=== PATIENT | male | born 1985 | race American Indian/Alaskan Native ===

== ENCOUNTER 2019-12-11 08:04 | Observation (INO) | payer BC, OTHER ==
[2019-12-11] MEDS ORDERED: [UNRECOGNIZED DRUG - OTHER] IM ONE (08:36)
[2019-12-11] MEDS ORDERED: Labetalol 100 MG/20 ML MDV IVPUSH ONE (08:38)
--- NOTE | 2019-12-11 08:41 | EDM.PDOC ---
ED HPI GENERAL MEDICAL PROBLEM - General Chief Complaint: Laceration Stated Complaint: INJURED FINGER Time Seen by Provider: 12/11/19 08:35 Source of Information: Reports: Patient History Limitations: Reports: No Limitations - History of Present Illness Onset: Today Location: Reports: Upper Extremity, Right (right middle finger on the pulp.) Associated Symptoms: Reports: Other (on admission to the ED his BP was extremely high. He does not have a history of hypertension but his father did and at the age of 62.) Right Middle Finger Pain Score (Numeric/FACES): 3 - Related Data Allergies Allergy/AdvReac Type Severity Reaction Status Date / Time No Known Allergies Allergy Verified 12/11/19 08:17 Home Meds: Home Meds . [No Known Home Meds] 10/03/18 [History] Past Medical History - Past Health History Medical/Surgical History: Denies Medical/Surgical History Social & Family History - Tobacco Use Smoking Status *Q: Never Smoker Second Hand Smoke Exposure: No - Caffeine Use Caffeine Use: Reports: Coffee, Energy Drinks, Tea - Recreational Drug Use Recreational Drug Use: No ED ROS GENERAL - Review of Systems Review Of Systems: See Below Constitutional: Reports: No Symptoms HEENT: Reports: No Symptoms Respiratory: Reports: No Symptoms Cardiovascular: Reports: No Symptoms Endocrine: Reports: No Symptoms GI/Abdominal: Reports: No Symptoms : Reports: No Symptoms Musculoskeletal: Reports: Other (other than laceration of the right middle finger no other problems.) Skin: Reports: Other (laceration of right middle finger with a razor blade this morning.) Neurological: Reports: No Symptoms Psychiatric: Reports: No Symptoms Hematologic/Lymphatic: Reports: No Symptoms ED EXAM, SKIN/RASH Exam: See Below Exam Limited By: No Limitations General Appearance: Alert, WD/WN, No Apparent Distress Eye Exam: Bilateral Eye: EOMI, Normal Inspection, PERRL Ears: Normal External Exam, Normal Canal, Hearing Grossly Normal, Normal TMs Nose: Normal Inspection, Normal Mucosa, No Blood Throat/Mouth: Normal Inspection, Normal Lips, Normal Teeth, Normal Gums, Normal Oropharynx, Normal Voice, No Airway Compromise Head: Atraumatic, Normocephalic Neck: Normal Inspection, Supple, Non-Tender, Full Range of Motion Respiratory/Chest: No Respiratory Distress, Lungs Clear, Normal Breath Sounds, No Accessory Muscle Use, Chest Non-Tender Cardiovascular: Normal Peripheral Pulses, Regular Rate, Rhythm, No Edema, No Gallop, No JVD, No Murmur, No Rub Peripheral Pulses: 3+: Dorsalis Pedis (L), 4+: Carotid (L), Carotid (R), Radial (L), Radial (R), Dorsalis Pedis (R) GI/Abdominal: Normal Bowel Sounds, Soft, Non-Tender, No Organomegaly, No Distention, No Abnormal Bruit, No Mass (Male) Exam: Deferred Rectal (Males) Exam: Deferred Back Exam: Normal Inspection, Full Range of Motion, NT Extremities: No Pedal Edema, Normal Capillary Refill, Other (flap laceration of the pulp of the right middle finger.) Psychiatric: Normal Affect, Normal Mood Skin: Other (laceration as noted above. The laceration is superficial and will have steri-strips applied.) Lymphatic: No Adenopathy EKG INTERPRETATION EKG Date: 12/11/19 Rhythm: NSR Blairs: LAD-Left Blairs Deviation P-Wave: Present QRS: Normal ST-T: Normal QT: Normal EKG Interpretation Comments: ECG reveals early left ventricular hypertrophy. Course - Vital Signs Text/Narrative:: I discussed this case with Dr. White at 11:06AM. I also discussed all of the patient lab, x-rays. I discussed with him being admitted to OBS under Dr. White and he agrees with the admission plan. Last Recorded V/S: Last Vital Signs Temp 97.6 F 12/11/19 09:33 Pulse 68 12/11/19 09:59 Resp 17 12/11/19 09:33 BP 195/127 H 12/11/19 09:59 Pulse Ox 94 L 12/11/19 09:33 - Orders/Labs/Meds Orders: Active Orders 24 hr Category Date Time Status EKG 12 Lead [EKG Documentation Completion] [RC] STAT Care 12/11/19 09:16 Active Vaccines to be Administered [RC] PER UNIT ROUTINE Care 12/11/19 08:37 Active Vaccines to be Administered [RC] PER UNIT ROUTINE Care 12/11/19 09:55 Active Steri Strips Application [OM.PC] Stat Oth 12/11/19 09:19 Ordered Labs: Laboratory Tests 12/11/19 12/11/19 12/11/19 Range/Units 08:52 08:52 08:52 WBC 6.36 (4.0-11.0) K/uL RBC 5.22 (4.50-5.90) M/uL Hgb 16.4 (13.0-17.0) g/dL Hct 46.0 (38.0-50.0) % MCV 88.1 (80.0-98.0) fL MCH 31.4 (27.0-32.0) pg MCHC 35.7 (31.0-37.0) g/dL RDW Std Deviation 41.8 (28.0-62.0) fl RDW Coeff of Lili 13 (11.0-15.0) % Plt Count 247 (150-400) K/uL MPV 10.30 (7.40-12.00) fL Neut % (Auto) 61.9 (48.0-80.0) % Lymph % (Auto) 26.6 (16.0-40.0) % [place] % (Auto) 8.6 (0.0-15.0) % Eos % (Auto) 2.7 (0.0-7.0) % Baso % (Auto) 0.2 (0.0-1.5) % Neut # (Auto) 3.9 (1.4-5.7) K/uL Lymph # (Auto) 1.7 (0.6-2.4) K/uL Merrick # (Auto) 0.6 (0.0-0.8) K/uL Eos # (Auto) 0.2 (0.0-0.7) K/uL Baso # (Auto) 0.0 (0.0-0.1) K/uL Nucleated RBC % 0.0 /100WBC Nucleated RBCs # 0 K/uL Sodium 142 (136-148) mmol/L Potassium 3.9 (3.5-5.1) mmol/L Chloride 104 (98-107) mmol/L Carbon Dioxide 29.2 (21.0-32.0) mmol/L BUN 14 (7.0-18.0) mg/dL Creatinine 1.1 (0.8-1.3) mg/dL Est Cr Clr Drug Dosing 104.84 mL/min Estimated GFR (MDRD) > 60.0 ml/min Glucose 119 H (74-106) mg/dL Calcium 9.1 (8.5-10.1) mg/dL Total Bilirubin 0.7 (0.2-1.0) mg/dL AST 28 (15-37) IU/L ALT 41 (14-63) IU/L Alkaline Phosphatase 57 (46-116) U/L Troponin I < 0.050 (0.000-0.056) ng/mL Total Protein 7.8 (6.4-8.2) g/dL Albumin 3.8 (3.4-5.0) g/dL Globulin 4.0 (2.6-4.0) g/dL Albumin/Globulin Ratio 0.9 (0.9-1.6) Meds: Medications Discontinued Medications Generic Name Dose Route Start Last Admin Trade Name Freq PRN Reason Stop Dose Admin Diphtheria/Ac Pert/Tetanus/Polio 0.5 ml 12/11/19 08:36 12/11/19 09:55 Kinrix IM 12/11/19 08:37 Not Given .ONCE ONE Diphtheria/Tetanus/Acell Pertussis 0.5 ml 12/11/19 09:55 12/11/19 09:55 Adacel IM 12/11/19 09:56 0.5 ml .ONCE ONE Administration Hydralazine HCl 10 mg 12/11/19 10:17 12/11/19 10:27 Apresoline IVPUSH 12/11/19 10:18 10 mg ONETIME ONE Administration Labetalol HCl 20 mg 12/11/19 08:38 12/11/19 09:06 Normodyne IVPUSH 12/11/19 08:39 20 mg ONETIME ONE Administration Protocol Departure - Departure Time of Disposition: 11:14 Disposition: Refer to Observation Condition: Good Clinical Impression: Malignant hypertension Laceration of finger, middle Qualifiers: Encounter type: initial encounter Damage to nail status: without damage Foreign body presence: without foreign body Laterality: right Qualified Code(s) : S61.212A - Laceration without foreign body of right middle finger without damage to nail, initial encounter - Discharge Information *PRESCRIPTION DRUG MONITORING PROGRAM REVIEWED*: Yes *COPY OF PRESCRIPTION DRUG MONITORING REPORT IN PATIENT LE: Yes Sepsis Event Note - Evaluation Sepsis Screening Result: No Definite Risk - Focused Exam Vital Signs: Vital Signs Temp Pulse Resp BP Pulse Ox 12/11/19 09:59 68 195/127 H 12/11/19 09:41 140/86 12/11/19 09:33 97.6 F 71 17 183/114 H 94 L 12/11/19 09:11 189/118 H 12/11/19 08:56 193/127 H 12/11/19 08:37 195/128 H 12/11/19 08:18 97.4 F 82 17 230/160 H 96 Date Exam was Performed: 12/11/19 Time Exam was Performed: 11:07 - My Orders Last 24 Hours: My Active Orders 12/11/19 08:37 Vaccines to be Administered [RC] PER UNIT ROUTINE 12/11/19 09:16 EKG 12 Lead [EKG Documentation Completion] [RC] STAT 12/11/19 09:19 Steri Strips Application [OM.PC] Stat 12/11/19 09:55 Vaccines to be Administered [RC] PER UNIT ROUTINE - Assessment/Plan Last 24 Hours: My Active Orders 12/11/19 08:37 Vaccines to be Administered [RC] PER UNIT ROUTINE 12/11/19 09:16 EKG 12 Lead [EKG Documentation Completion] [RC] STAT 12/11/19 09:19 Steri Strips Application [OM.PC] Stat 12/11/19 09:55 Vaccines to be Administered [RC] PER UNIT ROUTINE
[2019-12-11 09:22] LABS: BLOOD UREA NITROGEN,BUN 14 mg/dL (7.0-18.0); CARBON DIOXIDE,CO2 29.2 mmol/L (21.0-32.0); CHLORIDE,CL 104 mmol/L (98-107); GLUCOSE RANDOM 119 mg/dL (74-106); POTASSIUM,K 3.9 mmol/L (3.5-5.1); SODIUM,NA 142 mmol/L (136-148)
[2019-12-11] MEDS ORDERED: Diphtheria,Pertussis(Acell),Tetanus Vaccine 0.5 ML Syringe IM ONE (09:55)
--- NOTE | 2019-12-11 09:59 | CR ---
Chest: 2 views of the chest were obtained. Comparison: No prior chest imaging. Heart size and mediastinum are normal. Lungs are clear with no acute parenchymal change. Bony structures are grossly intact. Impression: 1. Nothing acute is appreciated on 2 view chest x-ray. Diagnostic code #1 This report was dictated in [place] Standard Time
[2019-12-11] MEDS ORDERED: hydrALAZINE 20 MG/ML SDV IVPUSH ONE ×2 (10:17→18:25)
--- NOTE | 2019-12-11 11:56 | PCM.HP.2 ---
H&P History of Present Illness - General Date of Service: 12/11/19 Admit Problem/Dx: Admission Diagnosis/Problem Admission Diagnosis/Problem Hypertension - History of Present Illness Initial Comments - Free Text/Narative: 33 yo male who presented to the ED after cutting his finger with a razor. He was treated with steriostrips and tetanus shot. He was noted to have blood pressures inthe 220s-180s systolic. He denies any chest pain, shortness of breath, headache or blurred vision. He reports that his finger does not hurt that much. ED provider gave IV hydralazine and labetolol and referred the patient for observation. Right Middle Finger Pain Score (Numeric/FACES): 3 - Related Data Allergies/Adverse Reactions: Allergies Allergy/AdvReac Type Severity Reaction Status Date / Time No Known Allergies Allergy Verified 12/12/19 09:04 Home Medications: Home Meds Lisinopril [Zestril] 40 mg PO DAILY 14 Days #14 tablet 12/12/19 [Rx] Past Medical History - Past Health History Medical/Surgical History: Denies Medical/Surgical History Social & Family History - Tobacco Use Smoking Status *Q: Never Smoker Second Hand Smoke Exposure: No - Caffeine Use Caffeine Use: Reports: Coffee, Energy Drinks, Tea - Recreational Drug Use Recreational Drug Use: No H&P Review of Systems - Review of Systems: Review Of Systems: See Below Exam - Exam Exam: See Below - Vital Signs Vital Signs: Last Vital Signs Temp 36.4 C 12/11/19 09:33 Pulse 72 12/11/19 11:11 Resp 23 H 12/11/19 11:11 BP 193/123 H 12/11/19 11:11 Pulse Ox 96 12/11/19 11:11 Weight: 127.006 kg - Exam General: Alert, Oriented HEENT: Mucosa Moist & [place] Lungs: Clear to Auscultation, Normal Respiratory Effort Cardiovascular: Regular Rate, Regular Rhythm GI/Abdominal Exam: Normal Bowel Sounds, Soft, Non-Tender Extremities: Non-Tender, No Pedal Edema Skin: Warm, Dry, Intact, Other (laceration of right second finger) Neurological: Cranial Nerves Intact, Reflexes Equal Bilateral, Strength Equal Bilateral, Normal Gait - Patient Data Lab Results Last 24 hrs: Laboratory Results - last 24 hr 02/04/20 02/04/20 02/04/20 Range/Units 08:52 08:52 08:52 WBC 6.36 (4.0-11.0) K/uL RBC 5.22 (4.50-5.90) M/uL Hgb 16.4 (13.0-17.0) g/dL Hct 46.0 (38.0-50.0) % MCV 88.1 (80.0-98.0) fL MCH 31.4 (27.0-32.0) pg MCHC 35.7 (31.0-37.0) g/dL RDW Std Deviation 41.8 (28.0-62.0) fl RDW Coeff of Lili 13 (11.0-15.0) % Plt Count 247 (150-400) K/uL MPV 10.30 (7.40-12.00) fL Neut % (Auto) 61.9 (48.0-80.0) % Lymph % (Auto) 26.6 (16.0-40.0) % [place] % (Auto) 8.6 (0.0-15.0) % Eos % (Auto) 2.7 (0.0-7.0) % Baso % (Auto) 0.2 (0.0-1.5) % Neut # (Auto) 3.9 (1.4-5.7) K/uL Lymph # (Auto) 1.7 (0.6-2.4) K/uL [place]ady # (Auto) 0.6 (0.0-0.8) K/uL Eos # (Auto) 0.2 (0.0-0.7) K/uL Baso # (Auto) 0.0 (0.0-0.1) K/uL Nucleated RBC % 0.0 /100WBC Nucleated RBCs # 0 K/uL Sodium 142 (136-148) mmol/L Potassium 3.9 (3.5-5.1) mmol/L Chloride 104 (98-107) mmol/L Carbon Dioxide 29.2 (21.0-32.0) mmol/L BUN 14 (7.0-18.0) mg/dL Creatinine 1.1 (0.8-1.3) mg/dL Est Cr Clr Drug Dosing 104.84 mL/min Estimated GFR (MDRD) > 60.0 ml/min Glucose 119 H (74-106) mg/dL Calcium 9.1 (8.5-10.1) mg/dL Total Bilirubin 0.7 (0.2-1.0) mg/dL AST 28 (15-37) IU/L ALT 41 (14-63) IU/L Alkaline Phosphatase 57 (46-116) U/L Troponin I < 0.050 (0.000-0.056) ng/mL Total Protein 7.8 (6.4-8.2) g/dL Albumin 3.8 (3.4-5.0) g/dL Globulin 4.0 (2.6-4.0) g/dL Albumin/Globulin Ratio 0.9 (0.9-1.6) Result Diagrams: 12/11/19 08:52 12/11/19 08:52 Sepsis Event Note - Evaluation Sepsis Screening Result: No Definite Risk - Focused Exam Vital Signs: Vital Signs Temp Pulse Resp BP Pulse Ox 12/11/19 11:11 72 23 H 193/123 H 96 12/11/19 10:57 73 159/70 H 12/11/19 10:41 74 199/121 H 12/11/19 09:59 68 195/127 H 12/11/19 09:41 140/86 12/11/19 09:33 36.4 C 71 17 183/114 H 94 L 12/11/19 09:11 189/118 H 12/11/19 08:56 193/127 H 12/11/19 08:37 195/128 H 12/11/19 08:18 36.3 C 82 17 230/160 H 96 Date Exam was Performed: 12/12/19 Time Exam was Performed: 18:03 Problem List Initiated/Reviewed/Updated: Yes Orders Last 24hrs: Active Orders 24 hr Category Date Time Status Admission Status [Patient Status] [ADT] Stat ADT 12/11/19 11:17 Active Antiembolic Devices [RC] PER UNIT ROUTINE Care 12/11/19 11:52 Ordered EKG 12 Lead [EKG Documentation Completion] [RC] STAT Care 12/11/19 09:16 Active Oxygen Therapy [RC] PRN Care 12/11/19 11:51 Ordered Up ad [place] [RC] ASDIRECTED Care 12/11/19 11:51 Ordered VTE/DVT Education [RC] PER UNIT ROUTINE Care 12/11/19 11:51 Ordered Vaccines to be Administered [RC] PER UNIT ROUTINE Care 12/11/19 08:37 Active Vaccines to be Administered [RC] PER UNIT ROUTINE Care 12/11/19 09:55 Active Vital Signs [RC] Q4H Care 12/11/19 11:51 Ordered Regular Diet [DIET] Diet 12/11/19 Breakfast Ordered lisinopriL [Prinivil] Med 12/11/19 12:00 Ordered 20 mg PO DAILY Sequential Compression Device [OM.PC] Per Unit Routine Oth 12/11/19 11:51 Ordered Steri Strips Application [OM.PC] Stat Oth 12/11/19 09:19 Ordered Resuscitation Status Routine Resus Stat 12/11/19 11:51 Ordered Medication Orders Lisinopril (Prinivil) 20 mg PO DAILY [facility] Assessment/Plan Comment:: 33 yo male with finger laceration who is being referred for observation due to elevated blood pressures. We will start Lisinopril orally and continue to monitor. - Mortality Measure Prognosis:: Good
[2019-12-11] MEDS: Lisinopril 10 MG Tab PO SCH (12:35)
[2019-12-11] MEDS ORDERED: hydrALAZINE 20 MG/ML SDV IVPUSH PRN (19:05)
--- NOTE | 2019-12-12 08:51 | PCM.DCSUM1 ---
Discharge Summary - Hospital Course HPI Initial Comments: Admission Date: 12/11/19 Discharge Date: 12/12/19 Admission Diagnosis: 1. Hypertension 2. Finger laceration Discharge Diagnosis: 1. Hypertension- improved 2. Finger laceration Procedures: None Consults: None Hospital Course: The patient is a 33 year old male with no significant past medical history who presented to the ER after slicing finger with razor. In the ER treated with steri strips and Tetanus was updated. In the ER he was fond to have elevated blood pressure of 230/160. Workup ( CBC, CMP, trop, EKG, CXR) found no significant abnormalities. Given Hydralazine and Labetalol in ER with some improvement. Admitted to the medical floor, started on 20 mg of Lisinopril , remained asymptomatic and blood pressure improved. By day of discharge, patient felt fine and wanted to go home. Disposition: Home Discharge Condition: vitals stable, tolerating oral diet, ambulating without difficulty, symptom improvement Discharge Instructions: regular diet as tolerated, activity as tolerated, take medications as prescribed. Symptoms to report to physician include fever/chills , chest pain, shortness of breath, abdominal pain, erythema, drainage/discharge , or not improving as expected. Check BP daily, keep log, bring log to follow up appt. Discharge Medications: Lisinopril 40 mg po daily Follow-up: Dr. Ulloa 12/13/19 - Discharge Data Discharge Date: 12/12/19 Discharge Disposition: Home, Self-Care 01 Condition: Fair - Referral to Home Health Primary Care Physician: PCP None - Discharge Plan *PRESCRIPTION DRUG MONITORING PROGRAM REVIEWED*: Yes *COPY OF PRESCRIPTION DRUG MONITORING REPORT IN PATIENT LE: Yes Prescriptions/Med Rec: Lisinopril [Zestril] 40 mg PO DAILY 14 Days #14 tablet Home Medications: Home Meds Lisinopril [Zestril] 40 mg PO DAILY 14 Days #14 tablet 12/12/19 [Rx] Patient Handouts: Hypertension, [id number], Lisinopril tablets [facility] Jcarlos Ulloa MD [Ordering Only Provider] - 12/13/19 2:30 pm - Discharge Summary/Plan Comment DC Time >30 min.: No - Patient Data Vitals - Most Recent: Last Vital Signs Temp 97.3 F 12/12/19 03:38 Pulse 79 12/12/19 03:38 Resp 16 12/12/19 03:38 BP 146/89 H 12/12/19 03:38 Pulse Ox 95 12/12/19 03:38 Weight - Most Recent: 128.911 kg I&O - Last 24 hours: Intake & Output 12/11/19 12/12/19 12/12/19 22:59 06:59 14:59 Intake Total 600 1650 Output Total 500 1300 Balance 100 350 Lab Results - Last 24 hrs: Laboratory Results - last 24 hr 12/11/19 12/11/19 12/11/19 Range/Units 08:52 08:52 08:52 WBC 6.36 (4.0-11.0) K/uL RBC 5.22 (4.50-5.90) M/uL Hgb 16.4 (13.0-17.0) g/dL Hct 46.0 (38.0-50.0) % MCV 88.1 (80.0-98.0) fL MCH 31.4 (27.0-32.0) pg MCHC 35.7 (31.0-37.0) g/dL RDW Std Deviation 41.8 (28.0-62.0) fl RDW Coeff of Lili 13 (11.0-15.0) % Plt Count 247 (150-400) K/uL MPV 10.30 (7.40-12.00) fL Neut % (Auto) 61.9 (48.0-80.0) % Lymph % (Auto) 26.6 (16.0-40.0) % [place] % (Auto) 8.6 (0.0-15.0) % Eos % (Auto) 2.7 (0.0-7.0) % Baso % (Auto) 0.2 (0.0-1.5) % Neut # (Auto) 3.9 (1.4-5.7) K/uL Lymph # (Auto) 1.7 (0.6-2.4) K/uL [place] # (Auto) 0.6 (0.0-0.8) K/uL Eos # (Auto) 0.2 (0.0-0.7) K/uL Baso # (Auto) 0.0 (0.0-0.1) K/uL Nucleated RBC % 0.0 /100WBC Nucleated RBCs # 0 K/uL Sodium 142 (136-148) mmol/L Potassium 3.9 (3.5-5.1) mmol/L Chloride 104 (98-107) mmol/L Carbon Dioxide 29.2 (21.0-32.0) mmol/L BUN 14 (7.0-18.0) mg/dL Creatinine 1.1 (0.8-1.3) mg/dL Est Cr Clr Drug Dosing 104.84 mL/min Estimated GFR (MDRD) > 60.0 ml/min Glucose 119 H (74-106) mg/dL Calcium 9.1 (8.5-10.1) mg/dL Total Bilirubin 0.7 (0.2-1.0) mg/dL AST 28 (15-37) IU/L ALT 41 (14-63) IU/L Alkaline Phosphatase 57 (46-116) U/L Troponin I < 0.050 (0.000-0.056) ng/mL Total Protein 7.8 (6.4-8.2) g/dL Albumin 3.8 (3.4-5.0) g/dL Globulin 4.0 (2.6-4.0) g/dL Albumin/Globulin Ratio 0.9 (0.9-1.6) Med Orders - Current: Current Medications Hydralazine HCl (Apresoline) 10 mg IVPUSH Q4H PRN PRN Reason: Hypertension Last Admin: 12/11/19 22:40 Dose: 10 mg Lisinopril (Prinivil) 20 mg PO DAILY DENISE Last Admin: 12/11/19 12:35 Dose: 20 mg Discontinued Medications Diphtheria/Ac Pert/Tetanus/Polio (Kinrix) 0.5 ml IM .ONCE ONE Stop: 12/11/19 08:37 Last Admin: 12/11/19 09:55 Dose: Not Given Diphtheria/Tetanus/Acell Pertussis (Adacel) 0.5 ml IM .ONCE ONE Stop: 12/11/19 09:56 Last Admin: 12/11/19 09:55 Dose: 0.5 ml Hydralazine HCl (Apresoline) 10 mg IVPUSH ONETIME ONE Stop: 12/11/19 10:18 Last Admin: 12/11/19 10:27 Dose: 10 mg Hydralazine HCl (Apresoline) 20 mg IVPUSH ONETIME ONE Stop: 12/11/19 18:26 Last Admin: 12/11/19 18:37 Dose: 20 mg Labetalol HCl (Normodyne) 20 mg IVPUSH ONETIME ONE; Protocol Stop: 12/11/19 08:39 Last Admin: 12/11/19 09:06 Dose: 20 mg
[2019-12-12] MEDS: Lisinopril 10 MG Tab PO SCH (09:05)
== END 2019-12-12 13:30 | disposition home or self-care (01) ==
LOC: MW.ED 08:04 → MW.MS 11:17
PROVIDERS: ADMIT Internal Medicine; ATTEND Internal Medicine
DX: I10 Essential (primary) hypertension (principal); S61.212A Laceration without foreign body of right middle finger without damage to nail, initial encounter; Z23 Encounter for immunization; W26.8XXA Contact with other sharp object(s), not elsewhere classified, initial encounter
CPT/HCPCS: 36415; 71046; 80053; 84484; 85025; 90715; 93005; A9270; J0360; J3490; 90471; 96374; 96375; 99284-25

== ENCOUNTER 2019-12-14 20:19 | Emergency (ER) | payer BC ==
--- NOTE | 2019-12-14 20:56 | EDM.PDOC ---
ED HPI GENERAL MEDICAL PROBLEM - General Chief Complaint: Cardiovascular Problem Stated Complaint: HIGH BLOOD PRESURE Time Seen by Provider: 12/14/19 20:21 - History of Present Illness INITIAL COMMENTS - FREE TEXT/NARRATIVE: HPI 33-year-old male with recently diagnosed (and asymptomatic) hypertension presents for repeat evaluation of an elevated blood pressure. Patient was seen on 12/11/23 avulsion laceration on his right index finger tip pad, this is been healing well without interval complications. The patient had screening labs performed in the ED and admitted for observation status for further management. Patient followed up yesterday with his PCP who added an additional medication. 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 * Cardiac - [patient denies chest pain, palpitations, jaw pain, nausea, and shortness of breath at rest or on exertion. * Medications - lisinopril 40 mg q.d., HCTZ 50 mg q.h.s. ED evaluation on 12/11 as well as discharge summary on 12/12/19 reviewed, troponin negative, renal function with acceptable limits, ECG with LVH but reportedly without ischemic changes. M/S/F/SocHx notable for: please see HPI; remainder reviewed with patient and in chart. ROS: Negative constitutional, eye, cardiovascular, pulmonary, GI, , MSK, skin , neurologic, psychiatric, endocrine unless noted in the HPI. Exam HR 106, RR 18, BP 227/157, T 36.9C, SaO2 96% on room air. Gen: Pleasant, non-toxic appearing, resting comfortably. HEENT: NC, AT, PEERL, EOMI. Resp: Clear to auscultation bilaterally, normal work of breathing, no accessory muscle usage. Card: Regular rate and rhythm with no murmurs, rubs, or gallops, extremities warm and well perfused. GI: Non-tender to palpation throughout all quadrants, no focal tenderness at McBurney's point, negative George's sign, non-distended, no rebound or guarding. : deferred. MSK: No visible deformities, strength and tone without visually appreciable deficit. Skin: right index finger distal pad with a well-healing approximately 1 cm long laceration, otherwise normal color with no visible lesions. Neuro: alert and oriented 3, no facial asymmetry, no gaze preference, no slurring of speech. Pupils equal and reactive, EOMI, no facial asymmetry, no nystagmus, phonation intact, SCM 5/5 bilaterally. Cerebellar: bilateral upper extremities without dysmetria. Psych: Mood and affect appropriate. Imaging: EKG: SR one 1 bpm, no ST segment elevations or depressions, no LBBB, incomplete RBBB. MDM Previous chart, nursing note, labs, imaging, and vitals reviewed. A: 33-year-old male with recently diagnosed (and asymptomatic) hypertension presents for repeat evaluation of an elevated blood pressure. DDx: hypertension with or without end organ dysfunction (cardiac, renal, DESK OFFICER). Evaluation: patient clinically without interval change in HTN related symptomatology since his ED visit (which at that time the patient was asymptomatic), laboratory studies at that time reviewed and within acceptable limits. ECG (obtained by protocol today prior to my evaluation), without evidence of ischemia or clinically significant abnormalities. Patient remains appropriate for outpatient management, recommend PCP follow-up on Tuesday for repeat blood pressure management, return to care precautions provided, patient may need addition of a third agent and further (and nonemergent) studies with regards to his ongoing hypertension. Impression: asymptomatic hypertension. (please reference below for remainder of encounter information) Patient was notified of their elevated blood pressure and recommended to follow up with their primary care physician. As the patient is without evidence of acute end organ dysfunction no further emergent evaluation is indicated as per the 2013 ACEP clinical policy. - Related Data Allergies Allergy/AdvReac Type Severity Reaction Status Date / Time No Known Allergies Allergy Verified 12/14/19 20:27 Home Meds: Home Meds Lisinopril [Zestril] 40 mg PO DAILY 14 Days #14 tablet 12/12/19 [Rx] Sertraline [Zoloft] 100 mg PO DAILY 12/14/19 [History] hydroCHLOROthiazide [Hydrochlorothiazide] 50 mg PO BEDTIME 12/14/19 [History] Past Medical History - Past Health History Medical/Surgical History: Denies Medical/Surgical History Cardiovascular History: Reports: Hypertension Psychiatric History: Reports: Anxiety - Past Surgical History Cardiovascular Surgical History: Reports: None Social & Family History - Family History Family Medical History: Noncontributory - Tobacco Use Smoking Status *Q: Never Smoker Second Hand Smoke Exposure: No - Caffeine Use Caffeine Use: Reports: Coffee, Energy Drinks, Tea - Recreational Drug Use Recreational Drug Use: No ED ROS GENERAL - Review of Systems Review Of Systems: See Below ED EXAM, GENERAL - Physical Exam Exam: See Below Course - Vital Signs Last Recorded V/S: Last Vital Signs Temp 36.9 C 12/14/19 20:23 Pulse 96 12/14/19 20:31 Resp 18 12/14/19 20:23 BP 227/157 H 12/14/19 20:31 Pulse Ox 96 12/14/19 20:23 Departure - Departure Time of Disposition: 20:55 Disposition: Home, Self-Care 01 Clinical Impression: Hypertension Referrals: PCP,None [Primary Care Provider] - Additional Instructions: You were in seen in the [facility] Emergency Department for evaluation of high blood pressure. At the time of your evaluation your blood pressure was elevated, however this is not an emergent issue. You should follow up on Tuesday with your primary care physician for repeat measurement of your blood pressure and possible additional evaluation or addition of medications. Please read and follow all of the instructions below. High Blood Pressure (Hypertension) When you were in the emergency department you had an abnormally high blood pressure. High blood pressure can be without symptoms. However high blood pressure can lead to many medical problems including kidney disease, strokes, and heart attacks. Your blood pressure may have been elevated due to pain or the stress of being in the emergency department, however half of people with an elevated blood pressure in the emergency department have manager terminal problems with high blood pressure. Please see your primary care physician in 2-3 days for a repeat check of your blood pressure. This may help prevent many health serious problems in the future. Please return to the emergency department if you develop any of the following: chest pain, shortness of breath, new or severe headache, changes in vision or hearing, weakness, or if you are otherwise concerned about your health. Please follow up with your primary care physician as needed. When calling for follow-up care, please make the office aware that this follow-up is from your recent emergency room visit. If for any reason you are refused follow-up, please contact the [facility] Emergency Department at and asked to speak to the emergency department charge nurse. Your care today was limited to identifying and treating emergent medical problems only. Many people have subtle differences in their test results that require follow up with their outpatient physician(s) to correctly determine if this represents a normal variation or concerning abnormality with respect to your specific health. The care given to you today was limited to identifying and treating emergent medical problems - you need to request a copy of all of your medical records from today's visit and follow up with your outpatient physician(s) to review both today's visit and your overall health. If you have any new symptoms or if you are at all concerned about your health please return immediately to the emergency department. Prescriptions: If you are uninsured or have financial difficulties with filling your prescription(s), you may consider using a free pharmacy discount service such as RECCY ([employer]) or [employer] ([employer]). These services allow you to search for a medication on your phone (or computer) and obtain a coupon that usually has a significant discount from the list parsons at a pharmacy. Your physician as well as [facility] does not have a financial relationship with either of these services. You may also wish to speak with your physician to determine if lower cost prescriptions are possible. Obtaining primary care: 1. [facility] provides pediatrics (children), family medicine (children, adults, and some obstetrical care), and internal medicine (adults). Further specialty care is also available. Same day appointments are available. They may be contacted at [phone] and are open Tuesday through Tuesday 8 AM to 5 PM. The [facility] are located at [facility], [address] [place], [place] [address]. 2. [facility] offers family medicine, internal medicine, womens health, and further specialty care. [facility] may be contacted at [phone]. [facility] is located at [address] [place], [address]. 3. If you have health insurance, please also contact your insurer for a list of accepting providers under your policy, you may contact these providers for further health care. Occupational health: Work related injuries may consider following up with [facility], . Occupational health services are located at [address] [place] [id number] and are open Tuesday through Tuesday from 7: 30 am to 5:00 pm. Obstetrical and Gynecological Care: [facility], , Tuesday through Tuesday 8 AM to 5 PM. [address] [place] [address]. Eyecare: If you have an eye injury you should follow up with your car parker or with [facility], at [phone] or [phone] , they are located at [address] [place] [address]. Dental Care Fernie Chanel DDS. [address] [facility].[place], [place]. Ph. [phone] Nima Chanel DDS MS. [address] [facility] [address], [place], [place]. Ph. [phone] Andrew Hill DDS. 10 [address] [place] [address]. Ph. [phone] Ra Barkley DDS. [address] [facility] 4 [place], [place]. Ph. [phone] Adria Galindo DDS PC. [address] [facility] [address] [place], [place]. Ph. [phone] Brijesh Gabriel DDS. [address] [facility]. Ph. [phone] [facility]. [address] [place], [place]. Ph. [phone] [facility]. [address] [place] [address], [place]. Ph. [phone] [facility] [address] [place] [phone]. Ph. [facility]. [address] [place] [address] 1. FANY Patel. Ph. [phone] [facility]. [address], FANY Patel. Ph. [phone] High Blood Pressure (Hypertension) When you were in the emergency department you had an abnormally high blood pressure. High blood pressure can be without symptoms. However high blood pressure can lead to many medical problems including kidney disease, strokes, and heart attacks. Your blood pressure may have been elevated due to pain or the stress of being in the emergency department, however half of people with an elevated blood pressure in the emergency department have manager terminal problems with high blood pressure. Please see your primary care physician in 2-3 days for a repeat check of your blood pressure. This may help prevent many health serious problems in the future. Please return to the emergency department if you develop any of the following: chest pain, shortness of breath, new or severe headache, changes in vision or hearing, weakness, or if you are otherwise concerned about your health. Sepsis Event Note - Evaluation Sepsis Screening Result: No Definite Risk - Focused Exam Vital Signs: Vital Signs Temp Pulse Resp BP Pulse Ox 12/14/19 20:31 96 227/157 H 12/14/19 20:23 36.9 C 106 H 18 238/166 H 96 Date Exam was Performed: 12/14/19 Time Exam was Performed: 20:54
== END 2019-12-14 21:20 | disposition home or self-care (01) ==
LOC: MW.ED 20:19
DX: I10 Essential (primary) hypertension (principal); F41.9 Anxiety disorder, unspecified; Z79.899 Other long term (current) drug therapy
CPT/HCPCS: 93005; 99283-25

== ENCOUNTER 2021-04-01 23:23 | Emergency (ER) | payer BC ==
--- NOTE | 2021-04-01 23:42 | EDM.PDOC ---
ED HPI GENERAL MEDICAL PROBLEM - General Chief Complaint: Cardiovascular Problem Stated Complaint: HIGH BP Time Seen by Provider: 04/01/21 23:36 Source of Information: Reports: Patient History Limitations: Reports: No Limitations - History of Present Illness INITIAL COMMENTS - FREE TEXT/NARRATIVE: Patient is a 35-year-old male with a history of high blood pressure presents today for elevated BP. Patient has been have his medication for some time and blood pressure was reading in 200s today and his became concerned. Patient states that he took 20mg of his lisinopril. Patient is he only takes 10 mg of lisinopril. Patient did report a slight headache earlier but states he did not have any coffee. Patient currently denies any confusion chest pain a neurologic deficits or urinary problems. Patient currently has no complaints. - Related Data Allergies Allergy/AdvReac Type Severity Reaction Status Date / Time No Known Allergies Allergy Verified 04/01/21 23:40 Home Meds: Home Meds lisinopriL [Zestril] 40 mg PO DAILY 14 Days #14 tablet 12/12/19 [Rx] Sertraline [Zoloft] 100 mg PO DAILY 12/14/19 [History] hydroCHLOROthiazide [Hydrochlorothiazide] 50 mg PO BEDTIME 12/14/19 [History] hydroCHLOROthiazide [Hydrochlorothiazide] 50 mg PO DAILY 30 Days #30 tab 04/02/21 [Rx] lisinopriL [Lisinopril] 40 mg PO DAILY 30 Days #30 tablet 04/02/21 [Rx] Past Medical History - Past Health History Medical/Surgical History: Denies Medical/Surgical History Cardiovascular History: Reports: Hypertension Psychiatric History: Reports: Anxiety - Past Surgical History Cardiovascular Surgical History: Reports: None Social & Family History - Family History Family Medical History: No Pertinent Family History - Caffeine Use Caffeine Use: Reports: Coffee, Energy Drinks, Tea ED ROS GENERAL - Review of Systems Review Of Systems: See Below Constitutional: Reports: No Symptoms HEENT: Reports: No Symptoms Respiratory: Reports: No Symptoms Cardiovascular: Reports: No Symptoms Endocrine: Reports: No Symptoms GI/Abdominal: Reports: No Symptoms : Reports: No Symptoms Musculoskeletal: Reports: No Symptoms Skin: Reports: No Symptoms Neurological: Reports: No Symptoms Psychiatric: Reports: No Symptoms Hematologic/Lymphatic: Reports: No Symptoms Immunologic: Reports: No Symptoms ED EXAM, GENERAL - Physical Exam Exam: See Below Exam Limited By: No Limitations General Appearance: Alert, WD/WN, No Apparent Distress Eye Exam: Bilateral Eye: EOMI, PERRL Respiratory/Chest: No Respiratory Distress, Lungs Clear, Normal Breath Sounds Cardiovascular: Normal Peripheral Pulses, Regular Rate, Rhythm GI/Abdominal: Normal Bowel Sounds, Soft, Non-Tender Extremities: Normal Inspection, Normal Range of Motion Neurological: Alert, Oriented, CN II-XII Intact, Normal Cognition, Normal Gait #1 Interpretation EKG Date: 04/02/21 Time: 23:58 Rhythm: NSR Rate (Beats/Min): 93 ST-T: Normal Course - Vital Signs Last Recorded V/S: Last Vital Signs Temp 97.1 F 04/01/21 23:37 Pulse 86 04/02/21 01:40 Resp 16 04/02/21 01:40 BP 164/104 H 04/02/21 02:19 Pulse Ox 97 04/02/21 01:40 - Orders/Labs/Meds Labs: Laboratory Tests 04/02/21 04/02/21 04/02/21 Range/Units 00:20 00:20 01:20 WBC 7.27 (4.0-11.0) K/uL RBC 5.08 (4.50-5.90) M/uL Hgb 16.0 (13.0-17.0) g/dL Hct 44.6 (38.0-50.0) % MCV 87.8 (80.0-98.0) fL MCH 31.5 (27.0-32.0) pg MCHC 35.9 (31.0-37.0) g/dL RDW Std Deviation 40.2 (28.0-62.0) fl RDW Coeff of Lili 13 (11.0-15.0) % Plt Count 246 (150-400) K/uL MPV 9.50 (7.40-12.00) fL Neut % (Auto) 57.7 (48.0-80.0) % Lymph % (Auto) 27.6 (16.0-40.0) % Shelby % (Auto) 9.1 (0.0-15.0) % Eos % (Auto) 5.2 (0.0-7.0) % Baso % (Auto) 0.4 (0.0-1.5) % Neut # (Auto) 4.2 (1.4-5.7) K/uL Lymph # (Auto) 2.0 (0.6-2.4) K/uL Shelby # (Auto) 0.7 (0.0-0.8) K/uL Eos # (Auto) 0.4 (0.0-0.7) K/uL Baso # (Auto) 0.0 (0.0-0.1) K/uL Sodium 139 (136-148) mmol/L Potassium 4.0 (3.5-5.1) mmol/L Chloride 102 (98-107) mmol/L Carbon Dioxide 29.5 (21.0-32.0) mmol/L BUN 17 (7.0-18.0) mg/dL Creatinine 1.3 (0.8-1.3) mg/dL Est Cr Clr Drug Dosing 87.05 mL/min Estimated GFR (MDRD) > 60.0 ml/min Glucose 118 H (74-106) mg/dL Calcium 8.3 L (8.5-10.1) mg/dL Total Bilirubin 0.4 (0.2-1.0) mg/dL AST 23 (15-37) IU/L ALT 39 (14-63) IU/L Alkaline Phosphatase 51 (46-116) U/L Creatine Kinase 261 (26-308) U/L Troponin I < 0.050 (0.000-0.056) ng/mL Total Protein 7.8 (6.4-8.2) g/dL Albumin 3.8 (3.4-5.0) g/dL Globulin 4.0 (2.6-4.0) g/dL Albumin/Globulin Ratio 0.9 (0.9-1.6) Urine Color YELLOW Urine Appearance CLEAR Urine pH 6.0 (5.0-8.0) Ur Specific [place] 1.010 (1.001-1.035) Urine Protein NEGATIVE (NEGATIVE) mg/dL Urine Glucose (UA) NEGATIVE (NEGATIVE) mg/dL Urine Ketones NEGATIVE (NEGATIVE) mg/dL Urine Occult Blood TRACE-INTACT H (NEGATIVE) Urine Nitrite NEGATIVE (NEGATIVE) Urine Bilirubin NEGATIVE (NEGATIVE) Urine Urobilinogen 0.2 (<2.0) EU/dL Ur Leukocyte Esterase NEGATIVE (NEGATIVE) Urine RBC 0-2 (0-2/HPF) Urine WBC 0-1 (0-5/HPF) Ur Epithelial Cells RARE (NONE-FEW) Urine Bacteria RARE (NEGATIVE) Meds: Medications Discontinued Medications Generic Name Dose Route Start Last Admin Trade Name Susannah PRN Reason Stop Dose Admin Amlodipine Besylate 5 mg 04/01/21 23:43 04/01/21 23:54 Amlodipine 5 Mg Tab PO 04/01/21 23:44 5 mg ONETIME ONE Administration - Re-Assessments/Exams Free Text/Narrative Re-Assessment/Exam: 04/02/21 01:13 Internet service if using images cannot be sent to the radiologist. Hospital hotel sales manager is aware of this problem and is causing a delay in patient care. We will continue to wait for images to be sent to radiologist and obtain report. 04/02/21 02:32 Again images remain down and have not been read. Patient elected instead to go home and states that if we can call her with something is abnormal. Patient again is asymptomatic. Patient is at bedside and she was upset earlier and was taking pictures of the nurses and staff. Patient made claims this is a terrible hospital and that she is a former nurses to use the nose with a hospital supposed to do for the patient. Patient himself is not sure why the is acting like that and states that he has no complaints of his own and is not sure why she is so upset. We spoke to the patient and try to figure out what was negative says states she used to work urinate is knows how terrible his hospital lives and does not really want to come here but has no other choice. Again patient does have elevated blood pressure but is not symptomatic. Patient will be discharged we will give him a refill of his lisinopril that he takes. 04/02/21 19:59 Patient's images that were still pending they are negative patient will discharge already last night. Departure - Departure Time of Disposition: 02:33 Disposition: Home, Self-Care 01 Condition: Good, Fair Clinical Impression: Hypertension Prescriptions: hydroCHLOROthiazide [Hydrochlorothiazide] 50 mg PO DAILY 30 Days #30 tab lisinopriL [Lisinopril] 40 mg PO DAILY 30 Days #30 tablet Instructions: Hypertension, Adult Referrals: Jcarlos Ulloa MD [Primary Care Provider] - Forms: ED Department Discharge Additional Instructions: The following information is given to patients seen in the emergency department who are being discharged to home. This information is to outline your options for follow-up care. We provide all patients seen in our emergency department with a follow-up referral. The need for follow-up, as well as the timing and circumstances, are variable depending upon the specifics of your emergency department visit. If you don't have a primary care physician on staff, we will provide you with a referral. We always advise you to contact your personal physician following an emergency department visit to inform them of the circumstance of the visit and for follow-up with them and/or the need for any referrals to a consulting specialist. The emergency department will also refer you to a specialist when appropriate. This referral assures that you have the opportunity for follow-up care with a specialist. All of these measure are taken in an effort to provide you with optimal care, which includes your follow-up. Under all circumstances we always encourage you to contact your private physician who remains a resource for coordinating your care. When calling for follow-up care, please make the office aware that this follow-up is from your recent emergency room visit. If for any reason you are refused follow-up, please contact the [facility] Emergency Department at and asked to speak to the emergency department charge nurse. Please follow up with your primary care physician. If you do not have a primary care physician, see below: [facility] [address] [place] [id number] My [facility] [address] [place] [address] Presented today for elevated blood pressure. You denied any complaints. We did labs EKG also did a x-ray and a CAT scan of your head. Your labs are in reviewed as well as EKG however your images cannot be read as the Internet was down and cannot send the images to our radiologist. You would like to want to go home and wait until the result came back. We will call you if there is any abnormal results and again we apologize for not being able to give you an answer of your CAT scan before you left. However we did offer that she could stay here and wait into the images are read in the morning. Sepsis Event Note (ED) - Evaluation Sepsis Screening Result: No Definite Risk - Assessment/Plan Plan: Patient is a 35-year-old male presents today for elevated blood pressure. Patient currently denies any complaints is asymptomatic. Will obtain labs EKG and reassess.
[2021-04-01] MEDS ORDERED: amLODIPine 5 MG Tab PO ONE (23:43)
[2021-04-02 00:46] LABS: BLOOD UREA NITROGEN,BUN 17 mg/dL (7.0-18.0); CARBON DIOXIDE,CO2 29.5 mmol/L (21.0-32.0); CHLORIDE,CL 102 mmol/L (98-107); GLUCOSE RANDOM 118 mg/dL (74-106); SODIUM,NA 139 mmol/L (136-148)
--- NOTE | 2021-04-02 07:48 | CR ---
INDICATION: Headache with hypertension TECHNIQUE: Chest 1 views COMPARISON: December 11, 2019 FINDINGS: Cardiovascular and mediastinum: Heart size and vasculature are normal in caliber and appearance. Lungs and pleural spaces: Lungs are clear. No sign of infiltrate or mass. No sign of pleural effusion. No pneumothorax. Bones and soft tissues: No significant findings. IMPRESSION: No acute findings and no significant changes from the prior exam. Dictated by Scott Lang MD @ 04/02/2021 7:47:[address] Scott Lang @ Apr 02 2021 7:47AM
--- NOTE | 2021-04-02 08:39 | CT ---
Indication: headache with elevated bp. Technique: CT of the head without contrast. Coronal and sagittal reformats. Bone and soft tissue windows. Images were not made available for interpretation until after 8 a.m. 04/02/2021. Comparison: No prior studies available for comparison at this institution. Findings: No acute intracranial hemorrhage or extra-axial collection. No evidence of acute cortical infarction. No mass effect or midline shift. Normal cerebral volume. The ventricles are normal in size, shape and contour. There is normal conway and white matter differentiation. The orbital contents are normal. No calvarial fractures. No lytic or sclerotic osseous lesions within the calvarium or skull base. Incidental oval soft tissue structure in the right parieto-occipital scalp and left parietal scalp likely represent epidermal inclusion cyst. Otherwise the scalp and other imaged soft tissue structures are normal. Mastoid air cells are clear. Paranasal sinuses are well aerated. Impression: No acute intracranial abnormality. Please note that all CT scans at this facility use dose modulation, iterative reconstruction, and/or weight-based dosing when appropriate to reduce radiation dose to as low as reasonably achievable. Dictated by José Miguel Mckeon MD @ 04/02/2021 8:37:[address] José Miguel Mckeon @ Apr 02 2021 8:37AM
== END 2021-04-02 02:40 | disposition home or self-care (01) ==
LOC: MW.ED 23:23
DX: I10 Essential (primary) hypertension (principal); Z79.899 Other long term (current) drug therapy
CPT/HCPCS: 36415; 70450; 71045; 80053; 81001; 82550; 84484; 85025; 93005; 99284; A9270